=== PATIENT | male | born 1985 | race Caucasian/White ===

== ENCOUNTER 2021-02-05 00:40 | Emergency (ER) | payer OTHER ==
--- OUTSIDE RECORDS SUMMARY | 2021-02-05 00:43 | XMS REPORT | Continuity of Care Document ---
:1985 Author Organization [facility] t Address [address] [place] [address] Care Team Providers Name Role Phone Unavailable Unavailable Unavailable Problems This patient has no known problems. Allergies, Adverse Reactions, Alerts This patient has no known allergies or adverse reactions. Medications Ordered Filled Start Stop Current Ordering Indication Dosage Frequency Signature Comments Components Source Medication Medication Date Date Medication? Clinician (SIG) Name Name Cholestyram Cholestyram Yes Orly [address] [facility] 2-06 [facility] mixed with [facility]: water or [facility] 00 non-carbon Cale ated drink [facility] Clin[facility] Fiber Fiber Yes Orly as [facility] directed [facility] ent Clinics Procedures This patient has no known procedures. Encounters Start End Encounter Admission Attending Care Care Encounter Source Date/Time Date/Time Type Type Clinicians Facility Department ID 2020-12-02 2020-12-02 Outpatient [facility]LSJAQUAN [id number] [facility] ent Clinics 2020-09-01 2020-09-01 Outpatient STLSJC STLSJC [id number] [facility]00 [facility] ent Clinics 2019-07-30 2019-07-30 Outpatient [facility] [id number] [address] 13:45:00 13:45:00 [facility] ent [facility] Results This patient has no known results.
[2021-02-05 03:12] LABS: Urine Blood Negative (Negative); Urine Glucose Negative (Negative); Urine Protein Negative (Negative); Urine Specific Gravity >=1.030 (1.005-1.030); Urine pH 5.5 (5.0-7.0)
[2021-02-05 03:21] LABS: Absolute Lymphocytes (CBC) 1.4 K/uL (0.7-4.9); Basophils % 0.7 % (0-1.3); Hematocrit 44.7 % (39.6-49.0); Lymphocytes % 36.2 % (15.3-44.8); RBC Red Blood Cell Count 5.08 M/uL (4.33-5.43)
[2021-02-05] MEDS ORDERED: NA CHLORIDE 0.9% 1,000 ML ONE (03:25)
[2021-02-05 03:34] LABS: Bilirubin Direct 0.1 mg/dL (0-0.2); Bilirubin Total 0.4 mg/dL (0.2-1.0); Protein, Total 7.7 g/dL (6.4-8.2)
[2021-02-05] MEDS ORDERED: MORPHINE 4 MG/ML SYR ONE (04:08)
[2021-02-05] MEDS ORDERED: ONDANSETRON 4 MG/2 ML VIAL ONE (04:08)
--- NOTE | 2021-02-05 05:09 | ER ---
Nurse's Notes [facility] Name: Hilario Nguyen Age: 35 yrs Sex: Male : 1985 Arrival Date: 02/05/2021 Time: 00:43 Bed DIS8 Private MD: Diagnosis: Flank Pain;Other cholelithiasis without obstruction Presentation: 02/05 02:26 Chief complaint: Patient states: bill. flank pain that started Saturday, hx of kidney em stones, denies urinary symptoms, denies N/V or fever. Coronavirus screen: Client denies travel out of the [place] in the last 14 days. Ebola Screen: Patient negative for fever greater than or equal to 101.5 degrees Fahrenheit, and additional compatible Ebola Virus Disease symptoms Patient denies exposure to infectious person. Patient denies travel to an Ebola-affected area in the 21 days before illness onset. No symptoms or risks identified at this time. Initial Sepsis Screen: Does the patient meet any 2 criteria? No. Patient's initial sepsis screen is negative. Does the patient have a suspected source of infection? No. Patient's initial sepsis screen is negative. Risk Assessment: Do you want to hurt yourself or someone else? Patient reports no desire to harm self or others. Onset of symptoms was February 05, 2021. 02:26 Method Of Arrival: Ambulatory em 02:26 Acuity: MALATHI 3 em Historical: - Allergies: 02:29 No Known Allergies; em - PMHx: 02:29 None; em - PSHx: 02:29 None; em - Immunization history:: Client reports having NOT received the Covid vaccine. - Social history:: Smoking status: Patient denies any tobacco usage or history of. Screenin:26 Abuse screen: Denies threats or abuse. Nutritional screening: No deficits noted. em Tuberculosis screening: No symptoms or risk factors identified. Fall Risk None identified. Assessment: 04:00 Reassessment: Patient appears in no apparent distress at this time. Patient states em symptoms have not improved. 05:15 Reassessment: Patient appears in no apparent distress at this time. Patient and/or em family updated on plan of care and expected duration. Pain level reassessed. Patient is alert, oriented x 3, equal unlabored respirations, skin warm/dry/pink. Vital Signs: 02:26 BP 149 / 84; Pulse 75; Resp 18; Temp 98.1; Pulse Ox 99% on R/A; Weight 97.52 kg; Height em 6 ft. 2 in. (187.96 cm); 02: Body Mass Index 27.60 (97.52 kg, 187.96 cm) em ED Course: 00:43 Patient arrived in ED. cf2 02:26 Patient has correct armband on for positive identification. em 02:29 Triage completed. em 02:29 Arm band placed on. em 03:07 Andrea Kovacs MD is Attending Physician. 7 03:07 Inserted saline lock: 20 gauge in left antecubital area, using aseptic technique. Blood ea collected. 03:43 Chano Jack, JOSE JUAN is Primary Nurse. em 04:[address] In Process Unspecified. EDVT 05:07 Dillon Kennedy MD is Referral Physician. 7 05:35 No provider procedures requiring assistance completed. IV discontinued, intact, em bleeding controlled, No redness/swelling at site. Pressure dressing applied. Administered Medications: 03:07 Drug: NS 0.9% 1000 ml Route: IV; Rate: 1 bolus; Site: left antecubital; ea 04:48 Follow up: IV Status: Completed infusion; IV Intake: 1000ml em 03:45 Drug: morphine 4 mg Route: IVP; Site: left antecubital; em 04:48 Follow up: Response: No adverse reaction; Marked relief of symptoms; Pain is unchanged, em physician notified 03:45 Drug: Zofran (Ondansetron) 4 mg Route: IVP; Site: left antecubital; em 04:48 Follow up: Response: No adverse reaction em 04:53 Drug: Ketorolac 30 mg Route: IVP; Site: left antecubital; em Intake: 04:48 IV: 1000ml; Total: 1000ml. em Outcome: 05:08 Discharge ordered by . 7 05:35 Discharged to home ambulatory. em 05:35 Condition: improved 05:35 Discharge instructions given to patient, Instructed on discharge instructions, follow up and referral plans. medication usage, Demonstrated understanding of instructions, follow-up care, medications, Prescriptions given X 3. 05:35 Patient left the ED. em Signatures: Dispatcher [employer] [facility] Chano Jack, RN RN Dilcia Gustafson RN RN Doug Hernandez cf2 Andrea Kovacs MD MD mh7
--- NOTE | 2021-02-05 05:09 | EDPHYS ---
Physician Documentation [facility] Name: Hilario Nguyen Age: 35 yrs Sex: Male : 1985 Arrival Date: 02/05/2021 Time: 00:43 Bed DIS8 Private MD: ED Physician Andrea Kovacs HPI: 02/05 03:10 This 35 yrs old Male presents to ER via Ambulatory with complaints of Flank mh7 Pain, LEFT AND RIGHT FLANK PAIN. 03:10 The patient complains of pain in the left flank and right flank. mh7 03:10 The pain does not radiate. mh7 03:10 Onset: The symptoms/episode began/occurred 2 day(s) ago. Modifying factors: The mh7 symptoms are alleviated by nothing. the symptoms are aggravated by movement, palpation/percussion. Associated signs and symptoms: Pertinent negatives: diarrhea, dizziness, dysuria, fever, urinary frequency, headache, hematuria, nausea, pain radiating to the lower extremities, vomiting. Severity of pain: At its worst the pain was moderate yesterday, in the emergency department the pain is unchanged. Historical: - Allergies: 02:29 No Known Allergies; em - PMHx: 02:29 None; em - PSHx: 02:29 None; em - Immunization history:: Client reports having NOT received the Covid vaccine. - Social history:: Smoking status: Patient denies any tobacco usage or history of. ROS: 03:10 Constitutional: Negative for fever, chills, and weight loss, Eyes: Negative for injury, mh7 pain, redness, and discharge, ENT: Negative for injury, pain, and discharge, Neck: Negative for injury, pain, and swelling, Cardiovascular: Negative for chest pain, palpitations, and edema, Respiratory: Negative for shortness of breath, cough, wheezing, and pleuritic chest pain, Abdomen/GI: Negative for abdominal pain, nausea, vomiting, diarrhea, and constipation, : Negative for injury, bleeding, discharge, and swelling, MS/Extremity: Negative for injury and deformity, Skin: Negative for injury, rash, and discoloration, Neuro: Negative for headache, weakness, numbness, tingling, and seizure, Psych: Negative for depression, anxiety, suicide ideation, homicidal ideation, and hallucinations, Allergy/Immunology: Negative for hives, rash, and allergies, Endocrine: Negative for neck swelling, polydipsia, polyuria, polyphagia, and marked weight changes, Hematologic/Lymphatic: Negative for swollen nodes, abnormal bleeding, and unusual bruising. Exam: 03:10 Constitutional: This is a well developed, well nourished patient who is awake, alert, mh7 and in no acute distress. Head/Face: Normocephalic, atraumatic. Eyes: Pupils equal round and reactive to light, extra-ocular motions intact. Lids and lashes normal. Conjunctiva and sclera are non-icteric and not injected. Cornea within normal limits. Periorbital areas with no swelling, redness, or edema. Neck: Trachea midline, no thyromegaly or masses palpated, and no cervical lymphadenopathy. Supple, full range of motion without nuchal rigidity, or vertebral point tenderness. No Meningismus. Chest/axilla: Normal chest wall appearance and motion. Nontender with no deformity. No lesions are appreciated. Cardiovascular: Regular rate and rhythm with a normal S1 and S2. No gallops, murmurs, or rubs. Normal PMI, no JVD. No pulse deficits. Respiratory: Lungs have equal breath sounds bilaterally, clear to auscultation and percussion. No rales, rhonchi or wheezes noted. No increased work of breathing, no retractions or nasal flaring. Abdomen/GI: Soft, non-tender, with normal bowel sounds. No distension or tympany. No guarding or rebound. No evidence of tenderness throughout. 03:10 Skin: Warm, dry with normal turgor. Normal color with no rashes, no lesions, and no evidence of cellulitis. MS/ Extremity: Pulses equal, no cyanosis. Neurovascular intact. Full, normal range of motion. Neuro: Awake and alert, GCS 15, oriented to person, place, time, and situation. Cranial nerves II-XII grossly intact. Motor strength 5/5 in all extremities. Sensory grossly intact. Cerebellar exam normal. Normal gait. Psych: Awake, alert, with orientation to person, place and time. Behavior, mood, and affect are within normal limits. 03:10 Back: normal spinal alignment noted, CVA tenderness, that is mild, is noted bilaterally, muscle spasm, is not present. Vital Signs: 02:26 BP 149 / 84; Pulse 75; Resp 18; Temp 98.1; Pulse Ox 99% on R/A; Weight 97.52 kg; Height em 6 ft. 2 in. (187.96 cm); 02:26 Body Mass Index 27.60 (97.52 kg, 187.96 cm) em MDM: 05:06 Differential diagnosis: nephrolithiasis, pyelonephritis, UTI. Data reviewed: vital [facility] signs, nurses notes, lab test result(s), CBC, electrolytes, urinalysis, radiologic studies, CT scan. Counseling: I had a detailed discussion with the patient and/or guardian regarding: the historical points, exam findings, and any diagnostic results supporting the discharge/admit diagnosis, lab results, radiology results, the need for outpatient follow up, a general surgeon, to return to the emergency department if symptoms worsen or persist or if there are any questions or concerns that arise at home. Response to treatment: the patient's symptoms have resolved after treatment, the patient's blood pressure is in an acceptable range, mental status has returned to baseline, the patient no longer shows bradycardia, the patient is not short of breath, the patient is not tachycardic, the patient's pain is gone, the patient's temperature has normalized. 05:08 Patient medically screened. [facility] 02/05 03:06 Order name: Basic Metabolic Panel 02/05 03:06 Order name: CBC with Diff; Complete Time: 03:37 02/05 03:06 Order name: Hepatic Function; Complete Time: 03:37 02/05 03:06 Order name: Lipase; Complete Time: 03:37 02/05 03:07 Order name: Basic Metabolic Panel; Complete Time: 03:37 EDND 02/05 03:11 Order name: Urine Dipstick-Ancillary; Complete Time: 03:20 EDND 02/05 03:06 Order name: IV Saline Lock; Complete Time: 03:07 02/05 03:06 Order name: Labs collected and sent; Complete Time: 03:07 02/05 03:07 Order name: Stone Protocol CT ea Administered Medications: 03:07 Drug: NS 0.9% 1000 ml Route: IV; Rate: 1 bolus; Site: left antecubital; ea 04:48 Follow up: IV Status: Completed infusion; IV Intake: 1000ml em 03:45 Drug: morphine 4 mg Route: IVP; Site: left antecubital; em 04:48 Follow up: Response: No adverse reaction; Marked relief of symptoms; Pain is unchanged, em physician notified 03:45 Drug: Zofran (Ondansetron) 4 mg Route: IVP; Site: left antecubital; em 04:48 Follow up: Response: No adverse reaction em 04:53 Drug: Ketorolac 30 mg Route: IVP; Site: left antecubital; em Disposition Summary: 02/05/21 05:08 Discharge Ordered Location: Home [facility] Problem: new [facility] Symptoms: have improved [facility] Condition: Stable [facility] Diagnosis - Flank Pain [facility] - Other cholelithiasis without obstruction [facility] Followup: [facility] - With: Private Physician - When: 1 - 2 days - Reason: Worsening of condition, Recheck today's complaints, Continuance of care, Re-evaluation by your physician Followup: [facility] - With: Dillon Kennedy MD - When: 1 - 2 days - Reason: Worsening of condition, Recheck today's complaints Discharge Instructions: - Discharge Summary Sheet [facility] - Cholelithiasis, [id number] [facility] - Flank Pain, Adult, [id number] [facility] Forms: - Medication Reconciliation Form [facility] - Thank You Letter [facility] - Antibiotic Education [facility] - Prescription Opioid Use [facility] - Work release form em Prescriptions: - ondansetron 4 mg Oral tablet,disintegrating - place 1 tablet by TRANSLINGUAL route every 8 hours As needed; 6 tablet; [facility] Refills: 0, Product Selection Permitted - dicyclomine 20 mg Oral Tablet - take 1 tablet by ORAL route 4 times per day As needed; 20 tablet; Refills: 0, [facility] Product Selection Permitted - Tramadol 50 mg Oral Tablet - take 1 tablet by ORAL route every 8 hours as needed; 12 tablet; Refills: 0, [facility] Product Selection Permitted Signatures: Dispatcher [employer] Chano Quigley RN Dilcia Cote RN RN Andrea Pyle MD MD [facility]
[2021-02-05] MEDS ORDERED: KETOROLAC 30 MG/ML INJ ONE (05:15)
[2021-02-05 05:44] VITALS: BP 149/84; TEMP 98.1; O2SAT 99
--- NOTE | 2021-02-06 12:58 | RAD REPORT ---
EXAM DESCRIPTION: CT - Stone Protocol - 02/05/2021 6:37 am CLINICAL HISTORY: The patient is 35 years old and is Male; PAIN bilateral flank pain TECHNIQUE: Axial computed tomography images of the abdomen and pelvis without intravenous contrast. Sagittal and coronal reformatted images were created and reviewed. This CT exam was performed usi ng one or more of the following dose reduction techniques: automated exposure control, adjustment o f the mA and/or kV according to patient size, and/or use of iterative reconstruction technique. COMPARISON: No relevant prior studies available. FINDINGS: Lung bases: Unremarkable. No mass. No consolidation. ABDOMEN: Liver: Hepatomegaly. Gallbladder and bile ducts: Cholelithiasis. No ductal dilation. Pancreas: Unremarkable. No ductal dilation. Spleen: Unremarkable. No splenomegaly. Adrenals: Unremarkable. No mass. Kidneys and ureters: No nephrolithiasis, hydronephrosis or ureter stone. Stomach and bowel: Colonic diverticulosis. No bowel dilatation or obstruction. No bowel wall thickening. Stomach is not well distended. PELVIS: Appendix: The visualized appendix is normal. No pericecal inflammation to suggest acute appendic itis. Bladder: Unremarkable. No stones. Reproductive: Mild prostate gland enlargement. ABDOMEN and PELVIS: Intraperitoneal space: Unremarkable. No free air. No significant fluid collection. Bones/joints: No acute fracture visualized. No dislocation. Soft tissues: Unremarkable. Vasculature: Unremarkable. No abdominal aortic aneurysm. Lymph nodes: No pathologically enlarged lymph nodes. IMPRESSION: 1. No nephrolithiasis, hydronephrosis or ureter stone. 2. Cholelithiasis. 3. Colonic diverticulosis. 4. Hepatomegaly. Electronically signed by: Evon Aparicio MD 02/05/2021 4:21 AM CDT Due to temporary technical issues with the PACS/Fluency reporting system, reports are being signed by the in house radiologist without review as a courtesy to ensure prompt reporting. The interpreting r adiologist is fully responsible for the content of the report.
== END 2021-02-05 05:35 | disposition home or self-care (01) ==
LOC: ER 00:40
DX: K80.80 Other cholelithiasis without obstruction (principal)
CPT/HCPCS: 96361; 85025; 80048; 36415; 80076; 81003; 83690; 76377; 74176; 96375; 96374; 99284; J7030; J2405